=== PATIENT | male | born 1970 | race Caucasian/White ===

== ENCOUNTER → 2017-03-30 | Outpatient (CLI) | payer MEDICAID ==
[~2017-03-30] MED LIST: METF100010 PO
== END | disposition home or self-care (01) ==
LOC: CFH 09:59
PROVIDERS: ATTEND Nurse Practitioner Family
DX: I08.1 Rheumatic disorders of both mitral and tricuspid valves (principal); I37.1 Nonrheumatic pulmonary valve insufficiency
CPT/HCPCS: 93306